=== PATIENT | male | born 1970 | race Asian ===

== ENCOUNTER 2022-11-02 07:33 | Emergency (ER) | payer OTHER ==
[~2022-11-02] VITALS: Ht 172.7 cm; Wt 81.0 kg
[2022-11-02 07:39] VITALS: BP 155/95
[2022-11-02 07:59] LABS: COVID AG,FIA SOURCE NASOPHARYNGEAL
[2022-11-02] MEDS ORDERED: ACETAMINOPHEN/CODEINE 300-30 MG TABLET PO ONE (08:45)
[2022-11-02] MEDS ORDERED: IBUPROFEN 600 MG TABLET PO ONE (08:45)
[2022-11-02] MEDS: GuaiFENesin/D-METHORPHAN [SUGAR-FREE] 200-20MG/10 ML SYRUP UDCUP PO ONE ×2 (08:59→09:04)
[2022-11-02] MEDS ORDERED: BENZ-70 PO ×2 (09:33→12:44)
[2022-11-02] MEDS ORDERED: IBUP-1554 PO ×2 (09:33→12:44)
[2022-11-02] MEDS ORDERED: ACET-2080 PO ×2 (09:33→12:44)
[2022-11-02] MEDS ORDERED: GUAIFDM PO ×2 (09:33→12:44)
[2022-11-02 09:50] LABS: INFLUENZA TYPE A NEGATIVE FOR TYPE A (NEGATIVE); INFLUENZA TYPE B NEGATIVE FOR TYPE B (NEGATIVE)
== END 2022-11-02 09:49 | disposition home or self-care (01) ==
LOC: EMS 07:40
DX: U07.1 COVID-19 (principal); J06.9 Acute upper respiratory infection, unspecified; I10 Essential (primary) hypertension
CPT/HCPCS: 87804; 99283